=== PATIENT | female | born 1975 | race African-American/Black ===

== ENCOUNTER 2021-02-07 04:04 | Emergency (ER) | payer MEDICAID ==
[~2021-02-07] VITALS: Ht 177.8 cm; Wt 120.0 kg
[2021-02-07 05:17] LABS: BASOPHILS % 1.3 % (0.0-2.0); EOSINOPHILS % 0.9 % (0.0-5.0); HEMATOCRIT. 41.1 % (36.0-48.0); HEMOGLOBIN. 13.3 g/dL (12.0-16.0); LYMPHOCYTES % 44.5 % (20.0-50.0); MEAN CORPUSCULAR HEMOGLOBIN 29.6 pg (28.0-32.0); MEAN CORPUSCULAR VOLUME 91.3 fL (81.0-99.0); MEAN PLATELET VOLUME 7.5 fl (7.4-10.4); MONOCYTES % 5.7 % (2.0-8.0); NEUTROPHILS % 47.6 % (40.0-76.0); PLATELET 264 x1000/uL (130-400); RED CELL DISTRIBUTION WIDTH 13.7 % (11.6-14.6)
[2021-02-07 05:20] LABS: CHLORIDE 108 mEq/L (98-107)
[2021-02-07 05:53] VITALS: BP 132/65
== END 2021-02-07 06:09 | disposition home or self-care (01) ==
LOC: ER 04:21
DX: R55 Syncope and collapse (principal)
CPT/HCPCS: 36415; 80048; 81025; 85025; 93005; 99284

== ENCOUNTER 2021-08-23 06:37 | Emergency (ER) | payer MEDICAID ==
[~2021-08-23] VITALS: Ht 170.2 cm; Wt 118.0 kg
[2021-08-23 12:05] LABS: BASOPHILS % 0.6 % (0.0-2.0); EOSINOPHILS % 1.7 % (0.0-5.0); HEMATOCRIT. 40.7 % (36.0-48.0); HEMOGLOBIN. 13.7 g/dL (12.0-16.0); LYMPHOCYTES % 48.5 % (20.0-50.0); MEAN CORPUSCULAR HEMOGLOBIN 30.5 pg (28.0-32.0); MEAN CORPUSCULAR VOLUME 90.8 fL (81.0-99.0); MEAN PLATELET VOLUME 7.3 fl (7.4-10.4); MONOCYTES % 5.8 % (2.0-8.0); NEUTROPHILS % 43.4 % (40.0-76.0); PLATELET 312 x1000/uL (130-400); RED BLOOD CELL COUNT 4.49 mill/uL (4.2-5.4); RED CELL DISTRIBUTION WIDTH 13.5 % (11.6-14.6)
[2021-08-23 12:10] LABS: CHLORIDE 106 mEq/L (98-107)
[2021-08-23] MEDS ORDERED: TOPUD PO (12:21)
[2021-08-23 12:31] VITALS: BP 156/83
== END 2021-08-23 12:34 | disposition home or self-care (01) ==
LOC: ER 06:37
DX: R07.89 Other chest pain (principal)
CPT/HCPCS: 36415; 71045; 80053; 83880; 84484; 85025; 93005; 99285

== ENCOUNTER 2022-03-05 08:08 | Emergency (ER) | payer MEDICAID, OTHER ==
[~2022-03-05] VITALS: Ht 170.2 cm; Wt 96.0 kg
[~2022-03-05 08:08] MED LIST: TOPUD PO
[2022-03-05 10:44] LABS: BASOPHILS % 1.2 % (0.0-2.0); EOSINOPHILS % 2.2 % (0.0-5.0); HEMATOCRIT. 41.6 % (36.0-48.0); HEMOGLOBIN. 13.8 g/dL (12.0-16.0); LYMPHOCYTES % 50.2 % (20.0-50.0); MEAN CORPUSCULAR VOLUME 90.8 fL (81.0-99.0); MONOCYTES % 4.2 % (2.0-8.0); NEUTROPHILS % 42.2 % (40.0-76.0); PLATELET 308 x1000/uL (130-400); RED BLOOD CELL COUNT 4.58 mill/uL (4.2-5.4); RED CELL DISTRIBUTION WIDTH 13.6 % (11.6-14.6)
[2022-03-05 10:52] LABS: CHLORIDE 107 mEq/L (98-107)
[2022-03-05 12:39] VITALS: BP 137/66
== END 2022-03-05 12:46 | disposition home or self-care (01) ==
LOC: ER 08:08
DX: R07.89 Other chest pain (principal); I48.91 Unspecified atrial fibrillation; F17.210 Nicotine dependence, cigarettes, uncomplicated; Z79.01 Long term (current) use of anticoagulants
CPT/HCPCS: 36415; 71045; 80053; 83880; 84484; 85025; 93005; 99285

== ENCOUNTER 2022-08-25 14:47 | Emergency (ER) | payer MEDICAID, OTHER ==
[~2022-08-25] VITALS: Ht 175.3 cm; Wt 120.0 kg
[2022-08-25 14:55] VITALS: BP 137/59
[2022-08-25] MEDS ORDERED: CEPH500T MT (18:28)
[2022-08-25] MEDS ORDERED: HYDR453.3 TP (18:28)
== END 2022-08-25 18:44 | disposition home or self-care (01) ==
LOC: ER 14:55
DX: M79.622 Pain in left upper arm (principal); L29.9 Pruritus, unspecified; I48.91 Unspecified atrial fibrillation
CPT/HCPCS: 99281; 99283

== ENCOUNTER 2022-12-07 05:56 | Emergency (ER) | payer MEDICAID, OTHER ==
[~2022-12-07] VITALS: Ht 170.2 cm; Wt 122.5 kg
[~2022-12-07 05:56] MED LIST changes: +CEPH500T MT; +HYDR453.3 TP
[2022-12-07 06:07] VITALS: BP 127/54
[2022-12-07] MEDS ORDERED: NAPR500T7 MT (08:37)
[2022-12-07] MEDS ORDERED: AMOX1TAB16 MT (08:37)
== END 2022-12-07 10:07 | disposition home or self-care (01) ==
LOC: ER 05:56
DX: S91.351A Open bite, right foot, initial encounter (principal); W54.0XXA Bitten by dog, initial encounter; Y93.89 Activity, other specified; Y92.89 Other specified places as the place of occurrence of the external cause; Y99.8 Other external cause status; I48.91 Unspecified atrial fibrillation
CPT/HCPCS: 99281; 99283

== ENCOUNTER 2023-03-07 22:39 | Emergency (ER) | payer MEDICAID, OTHER ==
[~2023-03-07] VITALS: Ht 170.2 cm; Wt 114.3 kg
[~2023-03-07 22:39] MED LIST changes: +AMOX1TAB16 MT; +NAPR500T7 MT
[2023-03-07 22:44] VITALS: BP 96/66; RESP 14; TEMP 98.6; O2SAT 98
[2023-03-07 22:45] VITALS: PULSE 93
[2023-03-07] MEDS ORDERED: FLUORESCEIN SODIUM 1MG/STRIP LEFTEYE ONE (23:45)
[2023-03-07] MEDS ORDERED: TETRACAINE 0.5% OPHTH DROPS 4ML LEFTEYE ONE (23:45)
[2023-03-08] MEDS ORDERED: ERYT1OIN6 LEFTEYE (01:04)
== END 2023-03-08 01:32 | disposition home or self-care (01) ==
LOC: ER 23:40
DX: H10.9 Unspecified conjunctivitis (principal); H00.016 Hordeolum externum left eye, unspecified eyelid
CPT/HCPCS: 99283

== ENCOUNTER 2023-04-20 07:08 | Emergency (ER) | payer MEDICAID, OTHER ==
[~2023-04-20] VITALS: Ht 170.2 cm; Wt 116.0 kg
[~2023-04-20 07:08] MED LIST changes: +ERYT1OIN6 LEFTEYE
[2023-04-20 07:16] VITALS: BP 148/98; PULSE 80; RESP 17; TEMP 97.4; O2SAT 100
== END 2023-04-20 08:38 | disposition left against medical advice (07) ==
LOC: ER 07:08
DX: R51.9 Headache, unspecified (principal); R45.1 Restlessness and agitation
CPT/HCPCS: 99281

== ENCOUNTER 2023-04-22 08:18 | Emergency (ER) | payer MEDICAID, OTHER ==
[~2023-04-22] VITALS: Ht 170.2 cm; Wt 114.0 kg
[2023-04-22 08:25] VITALS: BP 125/59; PULSE 77; RESP 16; TEMP 98.3; O2SAT 99
== END 2023-04-22 10:41 | disposition home or self-care (01) ==
LOC: ER 08:18
DX: U07.1 COVID-19 (principal); J06.9 Acute upper respiratory infection, unspecified
CPT/HCPCS: 99283; 87426; C9803

== ENCOUNTER 2023-07-21 19:07 | Emergency (ER) | payer MEDICAID ==
[~2023-07-21] VITALS: Ht 165.1 cm; Wt 118.0 kg
[2023-07-21 19:16] VITALS: BP 146/86; PULSE 74; RESP 18; TEMP 97.9; O2SAT 100
== END 2023-07-21 21:59 | disposition left against medical advice (07) ==
LOC: ER 19:07
DX: R11.2 Nausea with vomiting, unspecified (principal); Z53.21 Procedure and treatment not carried out due to patient leaving prior to being seen by health care provider
CPT/HCPCS: 99281

== ENCOUNTER 2023-07-22 11:44 | Emergency (ER) | payer MEDICAID ==
[~2023-07-22] VITALS: Ht 170.2 cm; Wt 106.0 kg
[2023-07-22 11:50] VITALS: BP 141/73; PULSE 106; RESP 16; TEMP 98; O2SAT 100
[2023-07-22 12:33] LABS: BASOPHILS % 0.5 % (0.0-2.0); EOSINOPHILS % 1.1 % (0.0-5.0); HEMATOCRIT. 42.9 % (36.0-48.0); HEMOGLOBIN. 14.5 g/dL (12.0-16.0); LYMPHOCYTES % 30.1 % (20.0-50.0); MEAN CORPUSCULAR HEMOGLOBIN 30.7 pg (28.0-32.0); MEAN CORPUSCULAR HGB CONC 33.9 g/dL (31.0-37.0); MEAN CORPUSCULAR VOLUME 90.8 fL (81.0-99.0); MONOCYTES % 4.8 % (2.0-8.0); NEUTROPHILS % 63.5 % (40.0-76.0); PLATELET 291 x1000/uL (130-400); RED BLOOD CELL COUNT 4.72 mill/uL (4.2-5.4); RED CELL DISTRIBUTION WIDTH 13.9 % (11.6-14.6); WHITE BLOOD COUNT 4.2 x1000/uL (4.5-11.0)
[2023-07-22 13:15] LABS: ALANINE AMINOTRANSFERASE 9 IU/L (10-49); ALBUMIN 4.2 g/dL (3.2-4.8); ASPARTATE AMINOTRANSFERASE 16 IU/L (<34); BILIRUBIN TOTAL 0.6 mg/dL (0.1-1.0); CALCIUM 8.7 mg/dL (8.7-10.4); CARBON DIOXIDE 22 mEq/L (21-32); CHLORIDE 107 mEq/L (98-107); CREATININE 0.9 mg/dL (0.6-1.0); GLUCOSE 96 mg/dL (70-105); POTASSIUM 3.6 mEq/L (3.5-5.1); PROTEIN TOTAL 7.4 g/dL (6.0-8.3); SODIUM 138 mEq/L (136-145); UREA NITROGEN BLOOD 7 mg/dL (9-23)
[2023-07-22 13:35] LABS: TROPONIN I HIGH SENSITIVITY < 4 ng/L (3.0-34)
[2023-07-22 13:47] LABS: CLARITY URINE CLOUDY (CLEAR); COLOR URINE DARK YELLOW (YELLOW); GLUCOSE URINE NEGATIVE (NEGATIVE); KETONES URINE 1+ (NEGATIVE); LEUKOCYTE ESTERASE URINE NEGATIVE (NEGATIVE); NITRITE URINE NEGATIVE (NEGATIVE); OCCULT BLOOD URINE NEGATIVE (NEGATIVE); PH URINE 5.5 (4.5-8.0); PROTEIN URINE TRACE (NEGATIVE); SPECIFIC GRAVITY URINE 1.033 (1.005-1.030)
[2023-07-22 13:50] LABS: BACTERIA URINE 2+; SQUAMOUS EPITHELIAL CELL URINE 2+ /lpf (RARE/1+); YEAST URINE NONE SEEN
[2023-07-22 14:08] LABS: MUCUS URINE 2+ /lpf (< = 2+)
[2023-07-22 14:09] LABS: RBC URINE NONE SEEN /hpf (0-2)
[2023-07-22] MEDS ORDERED: LOPERAMIDE HCL 2MG CAPSULE PO ONE (14:30)
[2023-07-22] MEDS ORDERED: ONDANSETRON 4MG ODT PO ONE (15:00)
[2023-07-22] MEDS ORDERED: LOPERAMIDE HCL 2MG CAPSULE PO NR (15:45)
== END 2023-07-22 15:49 | disposition home or self-care (01) ==
LOC: ER 11:44
DX: R19.7 Diarrhea, unspecified (principal); I49.9 Cardiac arrhythmia, unspecified
CPT/HCPCS: 99284; 80053; 81003; 81025; 83690; 85025; 84484; 36415; 93005; Q0162

== ENCOUNTER 2023-11-04 09:32 | Emergency (ER) | payer MEDICAID ==
[~2023-11-04] VITALS: Ht 172.7 cm; Wt 111.0 kg
[2023-11-04 09:37] VITALS: O2SAT 100
[2023-11-04] MEDS: TETRACAINE 0.5% OPHTH DROPS 4ML RIGHTEYE ONE (10:40)
[2023-11-04] MEDS: FLUORESCEIN SODIUM 1MG/STRIP EACHEYE ONE (10:40)
[2023-11-04 12:39] VITALS: BP 135/71; PULSE 75; RESP 17; TEMP 98.1
== END 2023-11-04 12:40 | disposition home or self-care (01) ==
LOC: ER 10:26
DX: H57.11 Ocular pain, right eye (principal)
CPT/HCPCS: 70486; 81025; 99284

== ENCOUNTER 2023-12-23 03:06 | Emergency (ER) | payer MEDICAID, OTHER ==
[~2023-12-23] VITALS: Ht 170.2 cm; Wt 109.0 kg
[2023-12-23 03:20] VITALS: O2SAT 99
[2023-12-23] MEDS ORDERED: IBUP-2029 MT (06:45)
[2023-12-23 07:00] VITALS: TEMP 98.5
[2023-12-23 07:05] VITALS: BP 126/67; PULSE 72; RESP 20
[2023-12-23] MEDS: IBUPROFEN 600MG TABLET PO ONE (07:05)
== END 2023-12-23 07:51 | disposition home or self-care (01) ==
LOC: ER 03:06
DX: S09.90XA Unspecified injury of head, initial encounter (principal); Y08.89XA Assault by other specified means, initial encounter; Y93.89 Activity, other specified; Y92.89 Other specified places as the place of occurrence of the external cause; Y99.8 Other external cause status
CPT/HCPCS: 81025; 99282